=== PATIENT | male | born 1990 | race Caucasian/White ===

== ENCOUNTER 2021-09-04 14:29 | Emergency (ER) | payer OTHER, BC ==
[~2021-09-04] VITALS: Ht 188 cm; Wt 138.3 kg
[2021-09-04] MEDS ORDERED: CENTRUM ADULTS1 EACH PO (14:43)
[2021-09-04] MEDS ORDERED: ASA81BEC PO (14:44)
[2021-09-04] MEDS ORDERED: CEPHALEXIN500 MG PO (16:34)
[2021-09-04 16:50] VITALS: BP 154/72
== END 2021-09-04 16:51 | disposition home or self-care (01) ==
LOC: M.ERS 14:29
DX: S61.211A Laceration without foreign body of left index finger without damage to nail, initial encounter (principal); E78.5 Hyperlipidemia, unspecified; Z79.82 Long term (current) use of aspirin; Z88.1 Allergy status to other antibiotic agents; Z88.8 Allergy status to other drugs, medicaments and biological substances; W26.0XXA Contact with knife, initial encounter; Y93.89 Activity, other specified; Y92.69 Other specified industrial and construction area as the place of occurrence of the external cause; Y99.9 Unspecified external cause status